=== PATIENT | male | born 1970 | race Caucasian/White ===

== ENCOUNTER 2019-04-14 11:25 | Day surgery (SDC) | payer OTHER ==
[~2019-04-14] VITALS: Ht 175.3 cm; Wt 86.6 kg
[~2019-04-14 11:25] MED LIST: DULO1CAP PO; HYDR-3363 PO; PANT40TA3 PO; TYLE650T35 PO
[2019-04-14] MEDS ORDERED: NS 1,000 ML IV ONE (11:30)
[2019-04-14] MEDS ORDERED: LIDOCAINE 2% INJ 100 MG/5 ML SDV (FOR ANES.) As Ordered ONE (12:28)
[2019-04-14] MEDS ORDERED: PROPOFOL 200 MG/20 ML VIAL As Ordered ONE (12:28)
--- NOTE | 2019-04-14 12:33 | ROOR ---
Patient Name: Norman Mccabe Procedure Date: 04/14/2019 12:17 PM Date of : 1970 Age: 48 Room: [facility] Gender: Male Note Status: Finalized Procedure: Upper GI endoscopy Indications: Suspected esophageal reflux Providers: Dimas Farrar Jr, MD Referring MD: Dimas Farrar Jr, MD Requesting Provider: Medicines: Propofol per Anesthesia Complications: No immediate complications. Procedure: Pre-Anesthesia Assessment: - Prior to the procedure, a History and Physical was performed, and patient medications and allergies were reviewed. The patient is competent. The risks and benefits of the procedure and the sedation options and risks were discussed with the patient. All questions were answered and informed consent was obtained. Patient identification and proposed procedure were verified by the physician and the nurse in the pre-procedure area and in the procedure room. Mental Status Examination: alert and oriented. Airway Examination: normal oropharyngeal airway and neck mobility. Respiratory Examination: clear to auscultation. CV Examination: normal. ASA Grade Assessment: II - A patient with mild systemic disease. After reviewing the risks and benefits, the patient was deemed in satisfactory condition to undergo the procedure. The anesthesia plan was to use moderate sedation / analgesia (conscious sedation). Immediately prior to administration of medications, the patient was re-assessed for adequacy to receive sedatives. The heart rate, respiratory rate, oxygen saturations, blood pressure, adequacy of pulmonary ventilation, and response to care were monitored throughout the procedure. The physical status of the patient was re-assessed after the procedure. The Endoscope was introduced through the mouth, and advanced to the second part of duodenum. The upper GI endoscopy was accomplished without difficulty. The patient tolerated the procedure well. Findings: The upper third of the esophagus, middle third of the esophagus and lower third of the esophagus were normal. A medium-sized hiatal hernia was present. Two tongues of salmon-colored mucosa were present. No other visible abnormalities were present. The cardia, gastric fundus and gastric body were normal. Diffuse mildly erythematous mucosa without bleeding was found in the gastric antrum. Biopsies were taken with a cold forceps for histology. The duodenal bulb, first portion of the duodenum and second portion of the duodenum were normal. Impression: - Normal upper third of esophagus, middle third of esophagus and lower third of esophagus. - Medium-sized hiatal hernia. - Maxton-colored mucosa suggestive of short-segment Hammond's esophagus. - Normal cardia, gastric fundus and gastric body. - Erythematous mucosa in the antrum. Biopsied. - Normal duodenal bulb, first portion of the duodenum and second portion of the duodenum. Recommendation: - Discharge patient to home (ambulatory). - Return to primary care physician as previously scheduled. Dimas Farrar MD Dimas Farrar Jr, MD 04/14/2019 12:32:59 PM Electronically signed by Dimas Farrar Jr, MD Number of Addenda: 0 Note Initiated On: 04/14/2019 12:17 PM Estimated Blood Loss: Estimated blood loss: none.
--- NOTE | 2019-04-14 12:46 | ROOR ---
Patient Name: Norman Mccabe Procedure Date: 04/14/2019 12:19 PM Date of : 1970 Age: 48 Room: [facility] Gender: Male Note Status: Finalized Procedure: Colonoscopy Indications: Chronic diarrhea Providers: Dimas Farrar Jr, MD Referring MD: Dimas Farrar Jr, MD Requesting Provider: Medicines: Propofol per Anesthesia Complications: No immediate complications. Procedure: Pre-Anesthesia Assessment: - Prior to the procedure, a History and Physical was performed, and patient medications and allergies were reviewed. The patient is competent. The risks and benefits of the procedure and the sedation options and risks were discussed with the patient. All questions were answered and informed consent was obtained. Patient identification and proposed procedure were verified by the physician and the nurse in the pre-procedure area and in the procedure room. Mental Status Examination: alert and oriented. Airway Examination: normal oropharyngeal airway and neck mobility. Respiratory Examination: clear to auscultation. CV Examination: normal. ASA Grade Assessment: II - A patient with mild systemic disease. After reviewing the risks and benefits, the patient was deemed in satisfactory condition to undergo the procedure. The anesthesia plan was to use moderate sedation / analgesia (conscious sedation). Immediately prior to administration of medications, the patient was re-assessed for adequacy to receive sedatives. The heart rate, respiratory rate, oxygen saturations, blood pressure, adequacy of pulmonary ventilation, and response to care were monitored throughout the procedure. The physical status of the patient was re-assessed after the procedure. The Colonoscope was introduced through the anus and advanced to the cecum, identified by appendiceal orifice and ileocecal valve. The colonoscopy was performed without difficulty. The patient tolerated the procedure well. The quality of the bowel preparation was adequate. Findings: A few small-mouthed diverticula were found in the sigmoid colon. The rectum, recto-sigmoid colon, descending colon, transverse colon, ascending colon, cecum, appendiceal orifice and ileocecal valve appeared normal. A small polyp was found in the hepatic flexure. The polyp was removed with a hot snare. Resection and retrieval were complete. Impression: - Diverticulosis in the sigmoid colon. - The rectum, recto-sigmoid colon, descending colon, transverse colon, ascending colon, cecum, appendiceal orifice and ileocecal valve are normal. - One small polyp at the hepatic flexure, removed with a hot snare. Resected and retrieved. Recommendation: - Repeat colonoscopy in 5 years for surveillance based on pathology results. Dimas Farrar MD Dimas Farrar Jr, MD 04/14/2019 12:45:35 PM Electronically signed by Dimas Farrar Jr, MD Number of Addenda: 0 Note Initiated On: 04/14/2019 12:19 PM Estimated Blood Loss: Estimated blood loss: none.
[2019-04-14 13:15] VITALS: BP 133/63
== END 2019-04-14 13:24 | disposition home or self-care (01) ==
LOC: M OPP 11:25
PROVIDERS: ATTEND Surgery
DX: D12.3 Benign neoplasm of transverse colon (principal); K57.30 Diverticulosis of large intestine without perforation or abscess without bleeding; R19.7 Diarrhea, unspecified; K44.9 Diaphragmatic hernia without obstruction or gangrene; K22.8 Other specified diseases of esophagus; K31.89 Other diseases of stomach and duodenum

== ENCOUNTER 2025-01-26 08:46 | Day surgery (SDC) | payer OTHER ==
[~2025-01-26] VITALS: Ht 175.3 cm; Wt 96.6 kg
[~2025-01-26 08:46] MED LIST changes: +ACET650T61 PO; +CHLO50TA PO; -DULO1CAP PO; +DULO1CAP4 PO; +KETO10TAB PO; +MELO15TA28 PO; +METH-1165 PO; +NALT50TA4 PO; +PANT40TA29 PO; -PANT40TA3 PO; +TRAZ1TAB11 PO; -TYLE650T35 PO; +VITA200030 PO
[2025-01-26] MEDS ORDERED: LIDOCAINE 2% 100MG/5ML SDV (FOR ANES.) As Ordered ONE (10:21)
[2025-01-26] MEDS ORDERED: propofoL 200 MG/20 ML VIAL As Ordered ONE (10:21)
[2025-01-26 11:23] VITALS: TEMP 98.2
[2025-01-26 11:51] VITALS: BP 118/75; O2SAT 95
== END 2025-01-26 12:06 | disposition home or self-care (01) ==
LOC: M OPP 08:46
PROVIDERS: ATTEND Surgery
DX: K57.30 Diverticulosis of large intestine without perforation or abscess without bleeding (principal); Z86.0100 Personal history of colon polyps, unspecified; K21.00 Gastro-esophageal reflux disease with esophagitis, without bleeding; K44.9 Diaphragmatic hernia without obstruction or gangrene; Z79.899 Other long term (current) drug therapy; F17.220 Nicotine dependence, chewing tobacco, uncomplicated